=== PATIENT | female | born 1980 | race Caucasian/White ===

== ENCOUNTER 2017-02-26 18:45 | Emergency (ER) | payer SELFPAY ==
[2017-02-26 18:59] VITALS: BP 137/94
--- NOTE | 2017-02-26 19:04 | ER Document Report ---
ED Medical Screen (RME) - General Stated Complaint: CHEST PAIN Time seen by provider: 19:01 Mode of Arrival: Ambulatory Information source: Patient Notes: 36-year-old female presents to ED for left-sided chest tenderness. With difficulty breathing. She states that Thursday her knee gave out for a and she fell landing on the lower left side. Ever since then her left ribs have been very painful and she is unable to take a deep breath. She states she has not been to any kind of provider since the fall. Breath sounds diminished bilaterally but equal. Last menstrual period 02/17/2017 I have greeted and performed a rapid initial assessment of this patient. A comprehensive ED assessment and evaluation of the patient, analysis of test results and completion of medical decision making process will be conducted by an additional ED providers. TRAVEL OUTSIDE OF THE [place] IN LAST 30 DAYS: No - Related Data Allergies/Adverse Reactions: No Known Allergies Allergy (Verified 02/26/17 19:01) Past Medical History - Social History Family history: Other - copd Pulmonary Medical History: Reports: Hx Bronchitis - Immunizations Immunizations up to date: No Hx Diphtheria, Pertussis, Tetanus Vaccination: No Physical Exam - Vital signs Vitals: Temp Pulse BP Pulse Ox 98.2 F 85 137/94 H 100 02/26/17 18:56 02/26/17 18:56 02/26/17 18:56 02/26/17 18:56 Course - Vital Signs Vital signs: Temp Pulse Resp BP Pulse Ox 98.2 F 85 137/94 H 100 02/26/17 18:56 02/26/17 18:56 02/26/17 18:56 02/26/17 18:56
--- NOTE | 2017-02-26 22:37 | ER Document Report ---
ED General - General Chief Complaint: Rib Pain Stated Complaint: CHEST PAIN Mode of Arrival: Ambulatory Information source: Patient Notes: 36-year-old female presents to the emergency department complaining of left lateral thorax/rib pain over the last 4 days s/p mechanical fall. Patient reports tripped and fell 4 days ago landing on her left side/ribs. Reports pain with movement of thorax and deep breathing over the last 4 days. Denies of breath, bruising, chest pain, hemoptysis, nausea or vomiting, neck or back pain. States did not strike head or lose consciousness during the fall. TRAVEL OUTSIDE OF THE [place] IN LAST 30 DAYS: No - HPI Onset/Duration: Persistent Quality of pain: Achy Severity: Moderate Pain Level: 3 Similar symptoms previously: No Recently seen / treated by doctor: No - Related Data Allergies/Adverse Reactions: No Known Allergies Allergy (Verified 02/26/17 19:01) Past Medical History - General Information source: Patient - Social History Smoking Status: Current Every Day Smoker Chew tobacco use (# tins/day): No Frequency of alcohol use: Occasional Drug Abuse: None Lives with: Family Family History: Reviewed & Not Pertinent Patient has suicidal ideation: No Patient has homicidal ideation: No Pulmonary Medical History: Reports: Hx Bronchitis Renal/ Medical History: Denies: Hx Peritoneal Dialysis Surgical Hx: Negative - Immunizations Immunizations up to date: No Hx Diphtheria, Pertussis, Tetanus Vaccination: No Review of Systems - Review of Systems Constitutional: No symptoms reported EENT: No symptoms reported Cardiovascular: No symptoms reported Respiratory: No symptoms reported Gastrointestinal: No symptoms reported Genitourinary: No symptoms reported Female Genitourinary: No symptoms reported Musculoskeletal: See HPI Skin: No symptoms reported Hematologic/Lymphatic: No symptoms reported Neurological/Psychological: No symptoms reported -: Yes All other systems reviewed and negative Physical Exam - Vital signs Vitals: Temp Pulse BP Pulse Ox 98.2 F 85 137/94 H 100 02/26/17 18:56 02/26/17 18:56 02/26/17 18:56 02/26/17 18:56 - General General appearance: Appears well, Alert In distress: None - HEENT Head: Normocephalic, Atraumatic Eyes: Normal Pupils: PERRL - Respiratory Respiratory status: No respiratory distress Chest status: Tender, Pain on movement, Pain with cough, Pain with deep breathing. No: Nontender, Chest mass, Ecchymosis, No pleuritic chest pain, Wounds, Accessory muscle use, Prolonged expirations, Splinting, Other Breath sounds: Normal - CTAB Chest palpation: Tender - tenderness to palpation to left lateral lower thorax/ ribs. No crepitus, instability, bruising, or deformity.. No: Normal, Flail segment, [place] frothy sputum, Purulent sputum, Subcutaneous emphysema, Sucking chest wound, Ecchymosis, Wounds, Other - Cardiovascular Rhythm: Regular Heart sounds: Normal auscultation Murmur: No Pulses: Normal: Radial Normal capillary refill: Yes - Abdominal Inspection: Normal Distension: No distension Bowel sounds: Normal Tenderness: Nontender Organomegaly: No organomegaly - Back Back: Normal, Nontender. No: Tender, Deformity/step-off, CVA tenderness, Vertebra tenderness, Scars, Scoliosis, Wounds, Other - Extremities General upper extremity: Normal inspection, Nontender, Normal color, Normal ROM , Normal strength, Normal temperature. No: Edema General lower extremity: Normal inspection, Nontender, Normal color, Normal ROM , Normal strength, Normal temperature, Normal weight bearing. No: Edema - Neurological Neuro grossly intact: Yes Cognition: Normal Orientation: AAOx4 Emiliano Coma Scale Eye Opening: Spontaneous Emiliano Coma Scale Verbal: Oriented Marlette Coma Scale Motor: Obeys Commands Emiliano Coma Scale Total: 15 Speech: Normal Motor strength normal: LUE, RUE, LLE, RLE Sensory: Normal - Skin Skin Temperature: Warm Skin Moisture: Dry Skin Color: Normal Course - Re-evaluation Re-evalutation: 02/26/17 22:37 Patient hemodynamically stable, in no distress, afebrile. Chest x-ray unremarkable. Will treat for likely chest wall/rib contusion. Patient appears stable for discharge and agrees with home care, follow-up with PCP, ED return precautions. - Vital Signs Vital signs: Temp Pulse Resp BP Pulse Ox 98.2 F 85 137/94 H 100 02/26/17 18:56 02/26/17 18:56 02/26/17 18:56 02/26/17 18:56 - Diagnostic Test Radiology reviewed: Image reviewed, Reports reviewed Discharge - Discharge Clinical Impression: Contusion, chest wall Qualifiers: Encounter type: initial encounter Laterality: left Qualified Code(s): S20.212A - Contusion of left front wall of thorax, initial encounter Contusion of rib on left side Qualifiers: Encounter type: initial encounter Qualified Code(s): S20.212A - Contusion of left front wall of thorax, initial encounter Condition: Stable Disposition: HOME, SELF-CARE Instructions: Rib Contusion ([facility]), Chest Wall Pain ([facility]), Anti-Inflammatory Medication ([facility]) Additional Instructions: Follow-up with primary care provider this week. Return to the emergency department for any worsening symptoms or concerns. Prescriptions: Lidocaine/Menthol [Lidopatch] 1 patch TP DAILY PRN #3 adh..patch PRN Reason: Naproxen 500 mg PO BIDP PRN #10 tablet PRN Reason: Forms: Elevated Blood Pressure
== END 2017-02-26 22:58 | disposition home or self-care (01) ==
LOC: ER 18:45
DX: S20.212A Contusion of left front wall of thorax, initial encounter (principal); R07.81 Pleurodynia; R07.9 Chest pain, unspecified; W19.XXXA Unspecified fall, initial encounter; F17.200 Nicotine dependence, unspecified, uncomplicated
CPT/HCPCS: 99283

== ENCOUNTER 2017-11-18 04:52 | Emergency (ER) | payer SELFPAY ==
--- NOTE | 2017-11-18 05:21 | ER Document Report ---
HPI - HPI Patient complains to provider of: Right wrist injury Pain Level: 3 Context: Patient is a 37-year-old female comes emergency department for chief complaint of right wrist injury. She states that she tripped and landed on her outstretched arm, she denies elbow pain, shoulder pain, neck pain, head injury, she states that when she started having swelling she decided to come and get evaluated. She does not take any medications, LMP within the past month, she denies any medical problems. - REPRODUCTIVE Reproductive: DENIES: : Past Medical History - General Information source: Patient - Social History Smoking Status: Current Some Day Smoker Drug Abuse: None Lives with: Family Family History: Reviewed & Not Pertinent Pulmonary Medical History: Reports: Hx Bronchitis Renal/ Medical History: Denies: Hx Peritoneal Dialysis Surgical Hx: Negative - Immunizations Immunizations up to date: No Hx Diphtheria, Pertussis, Tetanus Vaccination: No Vertical Provider Document - CONSTITUTIONAL General Appearance: WD/WN, No Apparent Distress - INFECTION CONTROL TRAVEL OUTSIDE OF THE [place] IN LAST 30 DAYS: No - HEENT HEENT: Atraumatic, Normocephalic - NECK Neck: Normal Inspection - RESPIRATORY Respiratory: Breath Sounds Normal, No Respiratory Distress O2 Sat by Pulse Oximetry: 100 - CARDIOVASCULAR Cardiovascular: Regular Rate, Regular Rhythm - GI/ABDOMEN Gastrointestinal: Abdomen Soft, Abdomen Non-Tender - BACK Back: Normal Inspection - MUSCULOSKELETAL/EXTREMETIES Musculoskeletal/Extremeties: Tender - Tender over the right distal forearm/wrist , no snuffbox tenderness, pain with range of motion of the wrist, soft tissue swelling over the volar aspect of the wrist. Normal capillary refill and sensation. Normal forearm, arm, neck exam otherwise. Course - Re-evaluation Re-evalutation: 11/18/17 Radiology report taking a very long time. Called radiology, they are pushing images again. Discussed with patient what appears to me to be a fracture at the end of the ulna, questionable fracture of the radius, no displaced fractures. No snuffbox tenderness on exam. Normal distal neurovascular exam. Patient will be placed in a volar splint, discussed this with patient in detail , she is to follow-up with orthopedics for casting. 11/18/17 07:15 Nurse informs me that patient left, refused splint, did state she was going to follow-up with orthopedics. I called the phone number that was left for us, I spoke to the , patient is not home yet, discussed all details, advised that she come back to have the splint placed pending orthopedic follow-up. He states that he will speak to her. - Vital Signs Vital signs: Temp Pulse Resp BP Pulse Ox 98.4 F 94 18 123/89 H 100 11/18/17 04:53 11/18/17 04:53 11/18/17 04:53 11/18/17 04:53 11/18/17 04:53 - Diagnostic Test Radiology reviewed: Image reviewed Discharge - Discharge Clinical Impression: Wrist injury Qualifiers: Encounter type: initial encounter Laterality: right Qualified Code(s): S69.91XA - Unspecified injury of right wrist, hand and finger(s), initial encounter Condition: Stable Disposition: HOME, SELF-CARE Additional Instructions: Evidence for fracture at the end of your forearm in the bone called the ulna. There is a questionable fracture in the radius beside this. Wear the splint. Call the orthopedics referral today for a close follow-up and additional management. Return to the emergency department for any concerning or worsening symptoms including severe swelling or pain. Referrals: ELVIN OCASIO MD [ACTIVE STAFF] - Follow up tomorrow
--- NOTE | 2017-11-18 07:06 | RADIOLOGY REPORT (SQ) ---
EXAM DESCRIPTION: WRIST RIGHT 3 VIEWS CLINICAL HISTORY: 37 years, Female, fall on wrist, pain, swelling COMPARISON: None. NUMBER OF VIEWS: Four FINDINGS: Nondisplaced curvilinear fracture/defect of the ulnar styloid base with no evidence of healing. Minimal cortical irregularity of the distal radial diametaphysis may indicate a nondisplaced intra-articular fracture with overlying soft tissue swelling. Scaphoid appears intact. IMPRESSION: Nondisplaced fracture of the right ulnar styloid. Possible nondisplaced fracture of the right radial styloid. Consider CT/CR surveillance. 2011 [employer] [place]- All Rights Reserved
[2017-11-18 07:07] VITALS: BP 110/78
== END 2017-11-18 07:07 | disposition home or self-care (01) ==
LOC: ER 04:52
DX: S69.91XA Unspecified injury of right wrist, hand and finger(s), initial encounter (principal); W19.XXXA Unspecified fall, initial encounter; F17.200 Nicotine dependence, unspecified, uncomplicated
CPT/HCPCS: 99283

== ENCOUNTER 2018-07-19 01:54 | Emergency (ER) | payer SELFPAY ==
[2018-07-19] MEDS ORDERED: DEXAMETHASONE SOD PHOS INJ 10 MG/1 ML VIAL IM ONE (02:44)
--- NOTE | 2018-07-19 02:47 | ER Document Report ---
ED General - General Chief Complaint: Congestion Stated Complaint: CONGESTION,DIARRHEA Time Seen by Provider: 07/19/18 02:31 Notes: Patient is a 29-year-old female presents with complaint of nasal congestion. Some coughing. Some postnasal drip. Some sore throat. She says she also started to develop some diarrhea. Symptoms have been ongoing for 5 days. She says her stools are not watery but they are loose. No blood in her stool. Low- grade temp of 100.5 at home. No associated abdominal pain. She is a smoker. TRAVEL OUTSIDE OF THE [place] IN LAST 30 DAYS: No - Related Data Allergies/Adverse Reactions: No Known Allergies Allergy (Verified 02/26/17 19:01) Past Medical History - Social History Smoking Status: Unknown if Ever Smoked Frequency of alcohol use: None Drug Abuse: None Family History: Reviewed & Not Pertinent Patient has suicidal ideation: No Patient has homicidal ideation: No Pulmonary Medical History: Reports: Hx Bronchitis Renal/ Medical History: Denies: Hx Peritoneal Dialysis - Immunizations Immunizations up to date: No Hx Diphtheria, Pertussis, Tetanus Vaccination: No Review of Systems - Review of Systems Notes: My Normal Review Basic REVIEW OF SYSTEMS: CONSTITUTIONAL : Fever EENT: Nasal congestion. CARDIOVASCULAR: Denies chest pain. RESPIRATORY: Denies cough, cold, or chest congestion. Denies shortness of breath, difficulty breathing, or wheezing. GASTROINTESTINAL: Denies abdominal pain. Denies nausea, vomiting, or diarrhea. MUSCULOSKELETAL: Denies neck or back pain or joint pain or swelling. SKIN: Denies rash or skin lesions. NEUROLOGICAL: Denies altered mental status or loss of consciousness. Denies headache. Denies weakness or paralysis or loss of use of either side. Denies problems with gait or speech. Denies sensory or motor loss. ALL OTHER SYSTEMS REVIEWED AND NEGATIVE. Physical Exam - Vital signs Vitals: Temp Pulse BP Pulse Ox 98.7 F 91 147/95 H 100 07/19/18 01:59 07/19/18 01:59 07/19/18 01:59 07/19/18 01:59 - Notes Notes: General Appearance: Well nourished, alert, cooperative, no acute distress, no obvious discomfort. Well appearing. Normal nasal congestion on exam. Dry cough on exam. Vitals: reviewed, See vital signs table. Head: no swelling or tenderness to the head Eyes: PERRL, EOMI, Conjuctiva clear Mouth: No decreasd moisture Throat: No tonsillar inflammation, No airway obstruction, No lymphadenopathy Ears: Normal-appearing tympanic membranes bilaterally. Lungs: No wheezing, No rales, No rhonci, No accessory muscle use, good air exchange bilaterally. Heart: Normal rate, Regular rythm, No murmur, no rub Abdomen: Normal BS, soft, No rigidity, No abdominal tenderness, No guarding, no rebound, no abdominal masses, no organomegaly Extremities: good pulses in all extremities, no swelling or tenderness in the extremities, no edema. Skin: warm, dry, appropriate color, no rash Neuro: speech clear, oriented x 3, normal affect, responds appropriately to questions. Course - Re-evaluation Re-evalutation: 07/19/18 06:41 Patient has symptoms consistent with a upper respiratory infection. I do not suspect bacterial etiology. I encourage her to quit smoking as I informed her continued smoking with cause this to last longer and causing more sinus symptoms. I encourage her take [id number] anti-inflammatory decongestant such as Advil Cold and Sinus. Encouraged to take his medications with food. Encouraged her return to ER if she has any wheezing, difficulty breathing, recurrent fevers, or feels unwell. On exam patient's lung benson are clear she is in no distress and appears well and therefore feel she is safe to be discharged home. Dictation of this chart was performed using voice recognition software; therefore, there may be some unintended grammatical errors. - Vital Signs Vital signs: Temp Pulse Resp BP Pulse Ox 98.3 F 84 16 133/84 H 100 07/19/18 03:25 07/19/18 03:25 07/19/18 03:25 07/19/18 03:25 07/19/18 03:25 Discharge - Discharge Clinical Impression: URI (upper respiratory infection) Qualifiers: URI type: unspecified URI Qualified Code(s): J06.9 - Acute upper respiratory infection, unspecified Condition: Good Disposition: HOME, SELF-CARE Additional Instructions: Please return to the ER immediately if you develop fevers, vomiting, or difficulty breathing. Please take a anti-inflammatory with a decongestant such as "Advil Cold and Sinus". Take these medications with food. Please try to stop smoking.
[2018-07-19 03:25] VITALS: BP 133/84
== END 2018-07-19 04:45 | disposition home or self-care (01) ==
LOC: ER 01:54
DX: J06.9 Acute upper respiratory infection, unspecified (principal); R09.81 Nasal congestion; R05 Cough; R09.82 Postnasal drip; J02.9 Acute pharyngitis, unspecified; R19.7 Diarrhea, unspecified; F17.200 Nicotine dependence, unspecified, uncomplicated
CPT/HCPCS: 99283; 96372; J1100

== ENCOUNTER 2019-01-01 09:00 | Emergency (ER) | payer SELFPAY ==
[2019-01-01] MEDS ORDERED: PSEUDOEPHEDRINE HCL 30 MG TABLET PO ONE (09:48)
[2019-01-01] MEDS ORDERED: IPRATROPIUM/ALBUTEROL 0.5-2.5 MG/3 ML AMPUL NEB ONE (09:48)
[2019-01-01] MEDS ORDERED: IBUPROFEN 600 MG TABLET PO ONE (09:48)
[2019-01-01 10:08] LABS: ABSOLUTE EOSINOPHILS # (AUTO) 0.1 10^3/uL (0.0-0.6); ABSOLUTE LYMPHOCYTES (AUTO) 1.8 10^3/uL (0.5-4.7); ABSOLUTE MONOCYTES (AUTO) 0.9 10^3/uL (0.1-1.4); ABSOLUTE NEUT (AUTO) 4.9 10^3/uL (1.7-8.2); BASOPHILS % (AUTO) 0.5 % (0-2); EOSINOPHILS % (AUTO) 1.7 % (0-6); HEMATOCRIT 38.2 % (36.0-47.0); HEMOGLOBIN 13.2 g/dL (12.0-15.5); LYMPHOCYTES % (AUTO) 23.3 % (13-45); MEAN CORPUSCULAR HEMOGLOBIN 34.2 pg (27.0-33.4); MEAN CORPUSCULAR HGB CONC 34.5 g/dL (32.0-36.0); MEAN CORPUSCULAR VOLUME 99 fl (80-97); MONOCYTES % (AUTO) 11.4 % (3-13); PLATELET COUNT 215 10^3/uL (150-450); RED BLOOD COUNT 3.86 10^6/uL (3.72-5.28); RED CELL DISTRIBUTION WIDTH 13.4 % (11.5-14.0); SEGMENTED NEUTROPHILS % (AUTO) 63.1 % (42-78); TOTAL CELLS COUNTED % (AUTO) 100 %; WHITE BLOOD COUNT 7.8 10^3/uL (4.0-10.5)
--- NOTE | 2019-01-01 10:25 | ER Document Report ---
HPI - HPI Patient complains to provider of: Cold symptoms, shortness of breath Time Seen by Provider: 01/01/19 09:28 Onset: Other - 5 days Onset/Duration: Persistent Quality of pain: No pain Pain Level: 0 Context: Patient presents complaining of cold symptoms for the past 5 days with shortness of breath. Patient does complain of cough and congestion. Patient denies any fever. Patient does report recent sick contacts. Patient denies any history of travel, immobilization, bedrest or history of PE or DVT. Associated Symptoms: Nonproductive cough, Rhinnorhea, Shortness of breath. denies: Chest pain, Fever, Sore throat Exacerbated by: Walking Relieved by: Denies Similar symptoms previously: No Recently seen / treated by doctor: No - ROS ROS below otherwise negative: Yes Systems Reviewed and Negative: Yes All other systems reviewed and negative - CONSTITUTIONAL Constitutional: DENIES: Fever, Chills - EENT EENT: REPORTS: Nasal Drainage-Clear, Congestion - NEURO Neurology: REPORTS: Headache - CARDIOVASCULAR Cardiovascular: DENIES: Chest pain - RESPIRATORY Respiratory: REPORTS: Coughing - GASTROINTESTINAL Gastrointestinal: DENIES: Abdominal Pain, Nausea, Patient vomiting - REPRODUCTIVE Reproductive: DENIES: : - MUSCULOSKELETAL Musculoskeletal: DENIES: Back Pain - DERM Skin Color: Normal Skin Problems: None Past Medical History - General Information source: Patient - Social History Smoking Status: Current Every Day Smoker Chew tobacco use (# tins/day): No Frequency of alcohol use: None Drug Abuse: None 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 IN LAST 30 DAYS: No - HEENT HEENT: Atraumatic, Normocephalic. negative: Pharyngeal Exudate, Pharyngeal Tenderness, Pharyngeal Erythema, Tympanic Membrane Red, Tympanic Membrane Bulging Notes: Clear rhinorrhea, swollen nasal mucosa - NECK Neck: Normal Inspection, Supple. negative: Lymphadenopathy-Left, Lymphadenopathy-Right - RESPIRATORY Respiratory: Breath Sounds Normal, No Respiratory Distress, Chest Non-Tender - CARDIOVASCULAR Cardiovascular: Regular Rhythm, No Murmur, Tachycardia - GI/ABDOMEN Gastrointestinal: Abdomen Soft, Abdomen Non-Tender - BACK Back: Normal Inspection - MUSCULOSKELETAL/EXTREMETIES Musculoskeletal/Extremeties: MAEW, FROM, No Edema - NEURO Level of Consciousness: Awake, Alert, Appropriate Motor/Sensory: No Motor Deficit - DERM Integumentary: Warm, Dry, No Rash Course - Re-evaluation Re-evalutation: 01/01/19 11:16 Patient's tachycardia improved. Patient denies having any chest pain symptoms. Patient's respirations even unlabored, no objective dyspnea. No concern for PE. Patient nontoxic in appearance. Discussed plan of care. Patient is agreeable with symptomatic treatment at this time. - Vital Signs Vital signs: Temp Pulse Resp BP Pulse Ox 98.2 F 111 H 18 128/82 H 100 01/01/19 09:04 01/01/19 09:04 01/01/19 09:04 01/01/19 09:04 01/01/19 09:04 - Laboratory Result Diagrams: 01/01/19 09:55 01/01/19 09:55 Laboratory results interpreted by me: 01/01/19 09:55 MCV 99 H MCH 34.2 H 01/01/19 11:25 Labs- Entire Visit 01/01/19 01/01/19 01/01/19 09:55 09:55 09:55 WBC 7.8 RBC 3.86 Hgb 13.2 Hct 38.2 MCV 99 H MCH 34.2 H MCHC 34.5 RDW 13.4 Plt Count 215 Seg Neutrophils % 63.1 Lymphocytes % 23.3 Monocytes % 11.4 Eosinophils % 1.7 Basophils % 0.5 Absolute Neutrophils 4.9 Absolute Lymphocytes 1.8 Absolute Monocytes 0.9 Absolute Eosinophils 0.1 Absolute Basophils 0.0 D-Dimer 0.27 Sodium 141.3 Potassium 4.1 Chloride 105 Carbon Dioxide 29 Anion Gap 7 BUN 11 Creatinine 0.51 L Est GFR ( Amer) > 60 Est GFR (Non-Af Amer) > 60 Glucose 100 Calcium 9.1 Total Bilirubin 0.2 Direct Bilirubin 0.1 Neonat Total Bilirubin Not Reportable Neonat Direct Bilirubin Not Reportable Neonat Indirect Bili Not Reportable AST 15 ALT 21 Alkaline Phosphatase 74 Troponin I Total Protein 6.6 Albumin 3.9 01/01/19 09:55 WBC RBC Hgb Hct MCV MCH MCHC RDW Plt Count Seg Neutrophils % Lymphocytes % Monocytes % Eosinophils % Basophils % Absolute Neutrophils Absolute Lymphocytes Absolute Monocytes Absolute Eosinophils Absolute Basophils D-Dimer Sodium Potassium Chloride Carbon Dioxide Anion Gap BUN Creatinine Est GFR ( Amer) Est GFR (Non-Af Amer) Glucose Calcium Total Bilirubin Direct Bilirubin Neonat Total Bilirubin Neonat Direct Bilirubin Neonat Indirect Bili AST ALT Alkaline Phosphatase Troponin I < 0.012 Total Protein Albumin - Diagnostic Test Radiology reviewed: Reports reviewed - EKG Interpretation by Me EKG shows normal: Sinus rhythm Rate: Normal When compared to previous EKG there are: No significant change Additional EKG results interpreted by me: 01/01/19 11:25 Heart rate 81, no ST elevation or inversion. QTC 423 Discharge - Discharge Clinical Impression: Upper respiratory infection Qualifiers: URI type: unspecified URI Qualified Code(s): J06.9 - Acute upper respiratory infection, unspecified Dyspnea Qualifiers: Dyspnea type: unspecified Qualified Code(s): R06.00 - Dyspnea, unspecified Condition: Stable Disposition: HOME, SELF-CARE Instructions: Acetaminophen, Inhaled Bronchodilators ([facility]), Upper Respiratory Illness ([facility]) Additional Instructions: Return immediately for any new or worsening symptoms Followup with your primary care provider, call tomorrow to make a followup appointment Prescriptions: Albuterol Sulfate [Proair Hfa Inhalation Aerosol 8.5 gm Mdi] 2 puff IH Q4 PRN #1 mdi PRN Reason: Guaifenesin/Pseudoephedrne HCl [Mucinex D ER 1,200-120 mg Tab] 1 each PO Q12 PRN #12 tab.er.12h PRN Reason: Inhaler,Assist Device,Accesory [Optichamber] 1 each MC Q4 PRN #1 each PRN Reason: Naproxen [Naprosyn 250 Nmg Tablet] 1 tab PO BID #14 tablet Forms: Smoking Cessation Education, Return to Work Referrals: [facility] [Provider Group] - Follow up as needed [facility] [Provider Group] - Follow up as needed
[2019-01-01 10:28] LABS: ALANINE AMINOTRANSFERASE 21 U/L (9-52); ALBUMIN 3.9 g/dL (3.5-5.0); ALKALINE PHOSPHATASE 74 U/L (38-126); ANION GAP 7 (5-19); ASPARTATE AMINO TRANSFERASE 15 U/L (14-36); BILIRUBIN,DIRECT 0.1 mg/dL (0.0-0.4); BILIRUBIN,TOTAL 0.2 mg/dL (0.2-1.3); BLOOD UREA NITROGEN 11 mg/dL (7-20); CALCIUM 9.1 mg/dL (8.4-10.2); CARBON DIOXIDE 29 mmol/L (22-30); CHLORIDE 105 mmol/L (98-107); GLUCOSE 100 mg/dL (75-110); POTASSIUM 4.1 mmol/L (3.6-5.0); SODIUM 141.3 mmol/L (137-145); TOTAL PROTEIN 6.6 g/dL (6.3-8.2)
--- NOTE | 2019-01-01 11:02 | RADIOLOGY REPORT (SQ) ---
EXAM DESCRIPTION: CHEST 2 VIEWS COMPLETED DATE/TIME: 01/01/2019 10:54 am REASON FOR STUDY: sob COMPARISON: 09/17/2015 EXAM PARAMETERS: NUMBER OF VIEWS: two views TECHNIQUE: Digital Frontal and Lateral radiographic views of the chest acquired. RADIATION DOSE: NA LIMITATIONS: none FINDINGS: LUNGS AND PLEURA: No opacities, masses or pneumothorax. No pleural effusion. MEDIASTINUM AND HILAR STRUCTURES: No masses or contour abnormalities. HEART AND VASCULAR STRUCTURES: Heart normal size. No evidence for failure. BONES: No acute findings. HARDWARE: None in the chest. OTHER: No other significant finding. IMPRESSION: NO ACUTE RADIOGRAPHIC FINDING IN THE CHEST. TECHNICAL DOCUMENTATION: JOB ID: [id number] [email or web address]- All Rights Reserved Reading location - IP/workstation name: [email or web address]
[2019-01-01 11:52] VITALS: BP 118/94
--- NOTE | 2019-01-01 17:15 | EKG REPORT ---
SEVERITY:- BORDERLINE ECG - SINUS RHYTHM PROBABLE LEFT ATRIAL ABNORMALITY : Confirmed by: Margarito Walters MD 01-Jan-2019 17:14:20
== END 2019-01-01 11:40 | disposition home or self-care (01) ==
LOC: ER 09:00
DX: J06.9 Acute upper respiratory infection, unspecified (principal); R06.02 Shortness of breath; R05 Cough; J34.89 Other specified disorders of nose and nasal sinuses; R51 Headache; F17.200 Nicotine dependence, unspecified, uncomplicated
CPT/HCPCS: 93005; 94640; 99284; 36415; 85025; 80053; 84484; 85379; 71046; 93010; J7620

== ENCOUNTER 2019-01-17 20:33 | Emergency (ER) | payer SELFPAY ==
[2019-01-17] MEDS ORDERED: PENICILLIN G BENZATHINE 1.2 MILLION UNIT/2 ML DISP.SYRIN IM ONE (22:03)
--- NOTE | 2019-01-17 22:05 | ER Document Report ---
HPI - HPI Time Seen by Provider: 01/17/19 21:13 Pain Level: 4 Context: Patient is a 38-year-old female who presents emergency department with a chief complaint of of a sore throat. Her sore throat started this morning. She has not taken anything to help with her symptoms. She is still able to drink and eat, it is just irritating. She denies any cough, runny nose, ear pain, shortness of breath, or any other symptoms other than her sore throat. She denies any past medical history. - CONSTITUTIONAL Constitutional: DENIES: Fever, Chills - EENT EENT: REPORTS: Sore Throat. DENIES: Ear Pain, Nasal Drainage-Clear, Nasal Drainage-Purulent, Congestion - NEURO Neurology: DENIES: Headache - CARDIOVASCULAR Cardiovascular: DENIES: Chest pain - RESPIRATORY Respiratory: DENIES: Trouble Breathing, Coughing - GASTROINTESTINAL Gastrointestinal: DENIES: Abdominal Pain - REPRODUCTIVE Reproductive: DENIES: : - DERM Skin Color: Normal Skin Problems: None Past Medical History - Social History Smoking Status: Current Every Day Smoker Family History: Reviewed & Not Pertinent Pulmonary Medical History: Reports: Hx Bronchitis Renal/ Medical History: Denies: Hx Peritoneal Dialysis - Immunizations Immunizations up to date: No Hx Diphtheria, Pertussis, Tetanus Vaccination: No Vertical Provider Document - CONSTITUTIONAL Agree With Documented VS: Yes Exam Limitations: No Limitations General Appearance: No Apparent Distress - INFECTION CONTROL TRAVEL OUTSIDE OF THE [place] IN LAST 30 DAYS: No - HEENT HEENT: Atraumatic, Normocephalic, PERRLA, Pharyngeal Tenderness, Pharyngeal Erythema. negative: Dental Injury, Pharyngeal Exudate, Tympanic Membrane Red, Tympanic Membrane Bulging - NECK Neck: Lymphadenopathy-Left, Lymphadenopathy-Right - RESPIRATORY Respiratory: Breath Sounds Normal - CARDIOVASCULAR Cardiovascular: Regular Rate, Regular Rhythm Pulses: Normal: Radial - MUSCULOSKELETAL/EXTREMETIES Musculoskeletal/Extremeties: FROM - NEURO Level of Consciousness: Awake, Alert, Appropriate Motor/Sensory: No Motor Deficit - DERM Integumentary: Warm, Dry Course - Re-evaluation Re-evalutation: 01/17/19 22:06 Patient's rapid strep test is positive. She will be given penicillin G to treat her strep throat. She will also be sent home with supportive care of Motrin and Tylenol. I have a very low suspicion for a peritonsilar abcess because their uvula is midline. Airway is patent. I do not suspect Magdy's angina. Verbal discharge instructions were given to the patient. They verbalized understanding. They are stable for discharge. - Vital Signs Vital signs: Temp Pulse Resp BP Pulse Ox 100.3 F 102 H 18 129/88 H 99 01/17/19 20:56 01/17/19 20:56 01/17/19 20:56 01/17/19 20:56 01/17/19 20:56 Discharge - Discharge Clinical Impression: Sore throat, Strep pharyngitis Condition: Stable Disposition: HOME, SELF-CARE Instructions: Sore Throat ([facility]) Additional Instructions: You have been diagnosed with strep throat based on a positive strep test. You have been treated with a dose of penicillin here in the emergency department and do not need any additional antibiotics. Please take ibuprofen 600 mg every 6 hours or Tylenol 1000 mg every 6 hours as needed for throat discomfort. You can also gargle with salt water. Continue to drink plenty of fluids. Follow-up with your primary care doctor in the next several days. Return if you become unable to swallow, have difficulty breathing, pass out, have persistent vomiting that prevents you from being able to tolerate fluids, or have any other symptoms that are concerning to you. Forms: Return to Work
[2019-01-17 22:36] VITALS: BP 135/95
== END 2019-01-17 22:50 | disposition home or self-care (01) ==
LOC: ER 20:33
DX: J02.0 Streptococcal pharyngitis (principal); F17.200 Nicotine dependence, unspecified, uncomplicated
CPT/HCPCS: 99283; 96372; 87880; J0561

== ENCOUNTER 2019-08-06 14:03 | Emergency (ER) | payer SELFPAY ==
--- NOTE | 2019-08-06 16:50 | ER Document Report ---
ED Medical Screen (RME) - General Chief Complaint: Back Pain Stated Complaint: BACK PAIN Time Seen by Provider: 08/06/19 16:48 Mode of Arrival: Ambulatory Information source: Patient Notes: 38-year-old female presented to ED for complaint of back pain. She states 2 dogs pulled on 2 different directions about a month and a half ago she has had pain since then. She is no new falls. She states she had pain down her neck and down her back down her legs. Patient was alert and oriented respirations regular and unlabored speaking in full sentences. I have greeted and performed a rapid initial assessment of this patient. A comprehensive ED assessment and evaluation of the patient, analysis of test results and completion of medical decision making process will be conducted by an additional ED providers. TRAVEL OUTSIDE OF THE [place] IN LAST 30 DAYS: No - Related Data Allergies/Adverse Reactions: No Known Allergies Allergy (Verified 07/01/19 15:34) Past Medical History - Social History Family history: Other - copd Pulmonary Medical History: Reports: Hx Bronchitis Renal/ Medical History: Denies: Hx Peritoneal Dialysis - Immunizations Immunizations up to date: No Hx Diphtheria, Pertussis, Tetanus Vaccination: No Physical Exam - Vital signs Vitals: Temp Pulse Resp BP Pulse Ox 98.2 F 115 H 18 115/85 95 08/06/19 14:19 08/06/19 14:19 08/06/19 14:19 08/06/19 14:19 08/06/19 14:19 Course - Vital Signs Vital signs: Temp Pulse Resp BP Pulse Ox 97.6 F 74 14 118/82 98 08/06/19 21:38 08/06/19 21:38 08/06/19 21:38 08/06/19 21:38 08/06/19 21:38 Doctor's Discharge - Discharge Clinical Impression: Low back pain due to bilateral sciatica, Fall Condition: Good Disposition: HOME, SELF-CARE Instructions: Sciatica ([facility]), Warm Packs ([facility]) Additional Instructions: Follow-up with PCP/neurosurgery in 1 to 2 days. Return for any worsening symptoms. Do not work, drive, take Tylenol, or operate machinery while taking the pain medication or muscle relaxers. Ice/heat to your back. You can get an [id number] TENS unit and put on the area. take the medication as prescribed. Prescriptions: Hydrocodone/Acetaminophen [[place] 5-325 mg Tablet] 1 tab PO Q6 PRN #12 tablet PRN Reason: For Pain Methocarbamol [Robaxin 500 mg Tablet] 1,000 mg PO QID PRN #40 tablet PRN Reason: For Pain Forms: Return to Work
[2019-08-06] MEDS ORDERED: IBUPROFEN 600 MG TABLET PO ONE (16:54)
--- NOTE | 2019-08-06 16:54 | ER Document Report ---
ED Medical Screen (RME) - General Chief Complaint: Back Pain Stated Complaint: BACK PAIN Time Seen by Provider: 08/06/19 16:48 Mode of Arrival: Ambulatory Information source: Patient Notes: 88-year-old female presented to ED for worsening pain to her back. She does have a history of chronic back pain she also has a history of 2 dogs pulling her in different directions about a month and a half ago. She states she now has pain down her neck down her back down her legs. When she was seen here a month and a half ago she had similar pain. He did treat her with ibuprofen muscle relaxer and told to follow-up with PCP. She states she did not have the time of the money to go to the primary or to the orthopedics. Patient is alert and oriented respirations regular and unlabored speaking in full sentences. Patient denies any drinking or use of illicit drugs. She states she does smoke a half a pack a day. Patient states when she got up last night to go to the bathroom her legs gave out from under her. She did walk into the room today. Patient denies any loss of control of bowel bladder. I have greeted and performed a rapid initial assessment of this patient. A comprehensive ED assessment and evaluation of the patient, analysis of test results and completion of medical decision making process will be conducted by an additional ED providers. TRAVEL OUTSIDE OF THE [place] IN LAST 30 DAYS: No - Related Data Allergies/Adverse Reactions: No Known Allergies Allergy (Verified 07/01/19 15:34) Past Medical History - Social History Family history: Other - copd Pulmonary Medical History: Reports: Hx Bronchitis Renal/ Medical History: Denies: Hx Peritoneal Dialysis - Immunizations Immunizations up to date: No Hx Diphtheria, Pertussis, Tetanus Vaccination: No Physical Exam - Vital signs Vitals: Temp Pulse Resp BP Pulse Ox 98.2 F 115 H 18 115/85 95 08/06/19 14:19 08/06/19 14:19 08/06/19 14:08/06/19 14:19 08/06/19 14:19 Course - Vital Signs Vital signs: Temp Pulse Resp BP Pulse Ox 98.2 F 115 H 18 115/85 95 08/06/19 14:19 08/06/19 14:19 08/06/19 14:19 08/06/19 14:08/06/19 14:19
--- NOTE | 2019-08-06 17:47 | RADIOLOGY REPORT (SQ) ---
EXAM DESCRIPTION: L SPINE WHOLE COMPLETED DATE/TIME: 08/06/2019 5:30 pm REASON FOR STUDY: low back pain with sciatica COMPARISON: None. NUMBER OF VIEWS: Five views including obliques. TECHNIQUE: AP, lateral, oblique, and sacral radiographic images acquired of the lumbar spine. LIMITATIONS: None. FINDINGS: MINERALIZATION: Normal. SEGMENTATION: Normal. No transitional anatomy. ALIGNMENT: Normal. VERTEBRAE: Maintained height. No compression fracture. DISCS: Preserved height. No significant osteophytes or end plate irregularity. POSTERIOR ELEMENTS: Pedicles and facets are intact. No pars defect. HARDWARE: None in the spine. PARASPINAL SOFT TISSUES: Normal. PELVIS: SI joints intact. IMPRESSION: No acute radiographic finding at the lumbar spine. TECHNICAL DOCUMENTATION: JOB ID: [id number] 2010 [employer]- All Rights Reserved Reading location - IP/workstation name: [email or web address]
--- NOTE | 2019-08-06 18:48 | ER Document Report ---
HPI - HPI Patient complains to provider of: low back pain with bilat sciatica Time Seen by Provider: 08/06/19 16:48 Severity: Moderate Pain Level: 4 Context: This is a 38 yr old female pt with the listed pmh, presenting with an acute exacerbation of their lower back pain. Patient states that this has been ongoing for the last several weeks intermittently, worse since last night after she had an accidental mechanical fall onto her buttocks. Patient states that the pain is a sharp achy 8 out of 10 pain with radiation down both legs. Patient states that movement and palpation make the pain worse and rest makes the pain better. Patient denies any numbness, tingling, change of bowel or bladder habits or signs or symptoms of saddle anesthesia. Patient states that secondary to the pain, they have come to the emergency department. No spinal surgeries. No other falls or trauma. no IV drug use. otc meds not helping much. no hx of diabetes or asthma. no recent abx or steroids. no fevers, uti sx, or genitalia complaints. pt able to walk. pt hasn't sought care until now. denies . Patient denies all other complaints at this time. Exacerbated by: Movement Relieved by: Remaining still Similar symptoms previously: Yes Recently seen / treated by doctor: No - ROS Systems Reviewed and Negative: Yes All other systems reviewed and negative - To include 10 systems, unless mentioned in the hpi. - REPRODUCTIVE LMP: 2 weeks ago Reproductive: DENIES: : Past Medical History - General Information source: Patient - Social History Smoking Status: Current Every Day Smoker Frequency of alcohol use: None Drug Abuse: None Family History: Reviewed & Not Pertinent Patient has suicidal ideation: No Patient has homicidal ideation: No Pulmonary Medical History: Reports: Hx Bronchitis Endocrine Medical History: Reports: None Renal/ Medical History: Denies: Hx Kidney Stones, Hx Peritoneal Dialysis Past Surgical History: Denies: Hx Genitourinary Surgery, Hx Neurologic Surgery, Hx Orthopedic Surgery - Immunizations Immunizations up to date: No Hx Diphtheria, Pertussis, Tetanus Vaccination: No Vertical Provider Document - CONSTITUTIONAL Agree With Documented VS: Yes Exam Limitations: No Limitations Notes: Vital signs: All vital signs were reviewed per nursing notes. Gen. Appearance: Nontoxic, patient of stated age, sitting comfortably in the bed. pleasant, thin middle-aged white female who appears slightly older than stated age, speaking in full sentences, in no sign of resp distress, patient appears uncomfortable with movement however not toxic. Psychiatric: Alert and oriented x3, pleasant and very conversational, normal affect. Skin: Warm, pink, dry, normal turgor, no rashes. no grossly visible overlying skin changes or signs of trauma. HEENT: Normocephalic, atraumatic, no mathews signs. no raccoon eyes, pupils are equal and reactive to light, extraocular muscles intact, mucosal membranes moist, pink conjunctiva, no pharyngeal erythema no tonsillar exudate. no drooling, tripoding, voice change or stridor, uvula midline. tongue protrudes midline Neck: Supple, no tenderness, no lymphadenopathy. full rom and full strength. no meningeal signs. no signs of central cord syndrome CV: Regular rate and rhythm, Lungs: Clear to auscultation bilaterally, no wheezes, symmetrical chest rise. no chest wall ttp Abdomen: Soft, nontender, nondistended, good bowel sounds, no rebound, rigidity, guarding or peritoneal signs. No CVA tenderness bilaterally. This is a nonacute abdomen. No tenderness over McBurney's point. no grossly visible or palpable abdominal hernias Genitalia: pt deferred Rectal: deferred; however, no sign of loss of bowel or bladder, no soiling of clothing Back: There is increased tissue tension over the paralumbar musculature on the bilat sides. Palpation to this region did reproduce patient's pain exactly. There is no tenderness to palpation along the midline of the cervical, thoracic or lumbar spine. There are no step-offs or deformities noted. no overlying skin changes. Extremities: Distal pulses two out of four, good capillary refill, no edema, cyanosis or clubbing. full rom and full strength in all extremities with pain on bilateral hip flexion and extension. no swelling or ttp of the extremities. Slight antalgic gait secondary to pain only. good hand administrative manager. neg yash sign. neg farmer squeeze. no drop foot. no shortening or rotation of the limbs. no obvious deformities. Neuro: Cranial nerves II through XII intact, normal speech, cerebellar function intact. Symmetric smile and faces. reflexes wnl. motor and sensation intact to light touch. - INFECTION CONTROL TRAVEL OUTSIDE OF THE [place] IN LAST 30 DAYS: No Course - Re-evaluation Re-evalutation: 08/06/19 21:10 This patient presents with an acute exacerbation of their lower back pain. There are no signs or symptoms of saddle anesthesia or change in bowel or bladder habits. There are no current findings on examination indicative of spinal cord involvement. no uti sx. pain likely musculoskeletal and reproducible one exam. her triage lumbar xr was neg per rad and reviewed by myself. pt informed of her findings. she responded well to meds listed. will dc with a few vicodin and robaxin. gave medication precautions. advised sx care. Patient will followup with PCP/neurosurg within 2-4 days. Patient will return immediately to the emergency department with any worsening symptoms. Patient understands and was in agreement with treatment plan. Vss. Afebrile. Well appearing. Satting well on ra. Neurononfocal. no sign of cauda equina, central cord syndrome or spinal cord involvement. According to the [place] drug website, she has not received any narcotics in the last 6 months. On reexam, pt improved with tx listed. remained stable. nontoxic. well appearing. pain controlled. tolerating po. requesting to go home. Documentation achieved through voice recording which may lead to some occasional accidental typographical errors. Extensive efforts have been made to proof read documentation to make sure these are the least as possible. Category Date Time Status Lumbar spine complete [L SPINE WHOLE] [RAD] Stat Exams 08/06/19 16:55 Completed Dexamethasone Sod Phosphate [Decadron Inj 10 mg/1 ml Med 08/06/19 21:00 Once Vial] 10 mg INJ NOW ONE Hydrocodone/Acetaminophen [[place] 5-325 mg Tablet] Med 08/06/19 20:59 Once 2 tab PO NOW ONE Ibuprofen [Motrin 600 mg Tablet] Med 08/06/19 16:54 Discontinued 600 mg PO NOW ONE Methocarbamol [Robaxin 500 mg Tablet] Med 08/06/19 21:00 Once 1,000 mg PO NOW ONE 08/06/19 21:25 Temp Pulse Resp BP Pulse Ox 08/06/19 20:08 98.1 F 77 16 125/88 H 100 08/06/19 14: 98.2 F 115 H 18 115/85 95 - Vital Signs Vital signs: Temp Pulse Resp BP Pulse Ox 98.2 F 115 H 18 115/85 95 08/06/19 14:19 08/06/19 14:19 08/06/19 14:19 08/06/19 14:19 08/06/19 14:19 Discharge - Discharge Clinical Impression: Low back pain due to bilateral sciatica Fall Qualifiers: Encounter type: initial encounter Qualified Code(s): W19.XXXA - Unspecified fall, initial encounter Condition: Good Disposition: HOME, SELF-CARE Instructions: Warm Packs ([facility]), Sciatica ([facility]) Additional Instructions: Follow-up with PCP/neurosurgery in 1 to 2 days. Return for any worsening symptoms. Do not work, drive, take Tylenol, or operate machinery while taking the pain medication or muscle relaxers. Ice/heat to your back. You can get an xkpd-fne-kyttiki TENS unit and put on the area. take the medication as prescribed. Prescriptions: Hydrocodone/Acetaminophen [[place] 5-325 mg Tablet] 1 tab PO Q6 PRN #12 tablet PRN Reason: For Pain Methocarbamol [Robaxin 500 mg Tablet] 1,000 mg PO QID PRN #40 tablet PRN Reason: For Pain Forms: Return to Work
[2019-08-06] MEDS ORDERED: HYDROCODONE/ACETAMINOPHEN 5-325 MG TABLET PO ONE (20:59)
[2019-08-06] MEDS ORDERED: METHOCARBAMOL 500 MG TABLET PO ONE (21:00)
[2019-08-06] MEDS ORDERED: DEXAMETHASONE SOD PHOS INJ 10 MG/1 ML VIAL INJ ONE (21:00)
[2019-08-06 21:40] VITALS: BP 118/82
== END 2019-08-06 21:41 | disposition home or self-care (01) ==
LOC: ER 14:03
DX: M54.41 Lumbago with sciatica, right side (principal); M54.42 Lumbago with sciatica, left side; W19.XXXA Unspecified fall, initial encounter; F17.200 Nicotine dependence, unspecified, uncomplicated
CPT/HCPCS: 99283; 96374; 72110; J1100

== ENCOUNTER 2019-09-16 14:59 | Emergency (ER) | payer SELFPAY ==
[2019-09-16 15:30] VITALS: BP 119/82
[2019-09-16] MEDS ORDERED: ACETAMINOPHEN 325 MG TABLET PO ONE (15:30)
[2019-09-16] MEDS ORDERED: ONDANSETRON 4 MG TAB.RAPDIS PO ONE (15:30)
--- NOTE | 2019-09-16 15:30 | ER Document Report ---
ED Medical Screen (RME) - General Chief Complaint: Headache Stated Complaint: HEADACHE/BACK PAIN Time Seen by Provider: 09/16/19 15:27 Mode of Arrival: Ambulatory Information source: Patient Notes: 38-year-old female presented to ED for complaint of headache and back pain. She states her headache has been for 3 days and the back pain has been for months. She states she was here in the emergency room last month for the back pain. She said she has had headaches before but does not like she has a chronic problem. Patient is alert oriented respirations regular nonlabored speaking in full sentences walks with even steady gait. Patient states she smokes about 1/2 pack does not drink or do any kind of drugs. Last menstrual cycle started today. I have greeted and performed a rapid initial assessment of this patient. A comprehensive ED assessment and evaluation of the patient, analysis of test results and completion of medical decision making process will be conducted by an additional ED providers. TRAVEL OUTSIDE OF THE [place] IN LAST 30 DAYS: No - Related Data Allergies/Adverse Reactions: No Known Allergies Allergy (Verified 07/01/19 15:34) Past Medical History - Social History Family history: Other - copd - Past Medical History Cardiac Medical History: Reports: Hx Hypertension - not being treated Pulmonary Medical History: Reports: Hx Bronchitis Renal/ Medical History: Denies: Hx Kidney Stones, Hx Peritoneal Dialysis Past Surgical History: Denies: Hx Genitourinary Surgery, Hx Neurologic Surgery, Hx Orthopedic Surgery - Immunizations Immunizations up to date: No Hx Diphtheria, Pertussis, Tetanus Vaccination: No
[2019-09-16] MEDS ORDERED: KETOROLAC TROMETHAMINE 60 MG/2 ML SDV IM ONE (16:21)
[2019-09-16] MEDS ORDERED: DIPHENHYDRAMINE HCL 25 MG CAPSULE PO ONE (16:21)
--- NOTE | 2019-09-16 16:25 | ER Document Report ---
HPI - HPI Patient complains to provider of: Headache chronic low back pain Time Seen by Provider: 09/16/19 15:27 Onset: Other - 3 days for headache Quality of pain: Achy Pain Level: 4 Context: This 38-year-old female with history of chronic low back pain presents emergency department with complaints of headache to the top of her head for the past 3 days and her chronic low back pain. She reports she is taking Excedrin without relief of symptoms. She reports she had to call in work today at [employer]. She denies trauma. Denies recent heavy lifting. Denies fever vomiting diarrhea. Denies urinary bowel incontinence or retention. Denies paresthesia. She reports the light irritates her headache more. She also reports that she vomited due to the pain. Patient also reports she has a lot of people at home. Associated Symptoms: Headache Exacerbated by: Denies Relieved by: Denies Similar symptoms previously: Yes Recently seen / treated by doctor: No - NEURO Neurology: REPORTS: Headache - REPRODUCTIVE LMP: 09/16/19 Reproductive: DENIES: : Past Medical History - General Information source: Patient Last Menstrual Period: Current - Social History Smoking Status: Current Every Day Smoker Cigarette use (# per day): Yes Chew tobacco use (# tins/day): No Frequency of alcohol use: Occasional Drug Abuse: None Occupation: [employer] Lives with: Family Family History: Reviewed & Not Pertinent Patient has suicidal ideation: No Patient has homicidal ideation: No - Past Medical History Cardiac Medical History: Reports: Hx Hypertension - not being treated Pulmonary Medical History: Reports: Hx Bronchitis Renal/ Medical History: Denies: Hx Kidney Stones, Hx Peritoneal Dialysis Past Surgical History: Denies: Hx Genitourinary Surgery, Hx Neurologic Surgery, Hx Orthopedic Surgery - Immunizations Immunizations up to date: No Hx Diphtheria, Pertussis, Tetanus Vaccination: No Vertical Provider Document - CONSTITUTIONAL Agree With Documented VS: Yes Exam Limitations: No Limitations General Appearance: WD/WN, No Apparent Distress - INFECTION CONTROL TRAVEL OUTSIDE OF THE [place] IN LAST 30 DAYS: No - HEENT HEENT: Atraumatic, Normal ENT Exam, Normocephalic, PERRLA. negative: Conjuctival Injection, Pharyngeal Erythema, Tympanic Membrane Red - NECK Neck: Normal Inspection, Supple. negative: Lymphadenopathy-Left, Lymphadenopathy-Right - RESPIRATORY Respiratory: Breath Sounds Normal, No Respiratory Distress - CARDIOVASCULAR Cardiovascular: Regular Rate, Regular Rhythm - GI/ABDOMEN Gastrointestinal: Abdomen Soft, Abdomen Non-Tender - BACK Back: Normal Inspection - MUSCULOSKELETAL/EXTREMETIES Musculoskeletal/Extremeties: NATHANIEL DIAZ - NEURO Level of Consciousness: Awake, Alert, Appropriate Motor/Sensory: No Motor Deficit - DERM Integumentary: Warm, Dry Course - Re-evaluation Re-evalutation: 09/16/19 19:21 38-year-old female with history of chronic low back pain and headache. Was treated with Tylenol and Zofran upon arrival. Reports headache still but no further nausea. Patient was instructed on Toradol and Benadryl for headache. Instructed to follow-up with the [facility] for evaluation of her chronic low back pain and referral as indicated. She verbalized understanding to all instructions. Dictation of this chart was performed using voice recognition software; therefore, there may be some unintended grammatical errors.. - Vital Signs Vital signs: Temp Pulse Resp BP Pulse Ox 98.3 F 95 16 119/82 100 09/16/19 15:24 09/16/19 15:24 09/16/19 15:24 09/16/19 15:24 09/16/19 15:24 Discharge - Discharge Clinical Impression: Headache Qualifiers: Headache type: unspecified Headache chronicity pattern: unspecified pattern Intractability: not intractable Qualified Code(s): R51 - Headache Chronic back pain Qualifiers: Back pain location: low back pain Back pain laterality: unspecified Sciatica presence: with sciatica Sciatica laterality: sciatica laterality unspecified Qualified Code(s): M54.40 - Lumbago with sciatica, unspecified side Condition: Stable Disposition: HOME, SELF-CARE Instructions: [facility], Chronic Back Pain ([facility]), Use of Diphenhydramine, Headache ([facility]), Toradol Injection ([facility]) Additional Instructions: *You have been evaluated for headache and chronic low back pain * take benadryl and tylenol as indicated *rest *Follow up with the [facility] within one week *Return to ED for worsening condition, changes, needs Forms: Return to Work
== END 2019-09-16 16:46 | disposition home or self-care (01) ==
LOC: ER 14:59
DX: R51 Headache (principal); G89.29 Other chronic pain; M54.40 Lumbago with sciatica, unspecified side; R11.10 Vomiting, unspecified; F17.210 Nicotine dependence, cigarettes, uncomplicated; I10 Essential (primary) hypertension
CPT/HCPCS: J1885; S0119; 96372; 99283

== ENCOUNTER 2019-10-31 01:26 | Emergency (ER) | payer SELFPAY ==
[2019-10-31 01:33] VITALS: BP 117/94
[2019-10-31] MEDS ORDERED: LIDOCAINE 1% INJ-PF (10 MG/ML) 30 ML SDV INJ ONE (02:19)
[2019-10-31] MEDS ORDERED: NEOMY/BACITRAC ZN/POLY OINT 15 GM TP ONE (02:21)
--- NOTE | 2019-10-31 02:37 | ER Document Report ---
ED General - General Chief Complaint: Laceration Stated Complaint: RIGHT RING FINGER LACERATION Time Seen by Provider: 10/31/19 01:58 TRAVEL OUTSIDE OF THE [place] IN LAST 30 DAYS: No - Related Data Allergies/Adverse Reactions: No Known Allergies Allergy (Verified 07/01/19 15:34) Past Medical History - Social History Smoking Status: Current Every Day Smoker Frequency of alcohol use: Social Family History: Reviewed & Not Pertinent Patient has suicidal ideation: No Patient has homicidal ideation: No - Past Medical History Cardiac Medical History: Reports: Hx Hypertension - not being treated Pulmonary Medical History: Reports: Hx Bronchitis Renal/ Medical History: Denies: Hx Kidney Stones, Hx Peritoneal Dialysis Past Surgical History: Denies: Hx Genitourinary Surgery, Hx Neurologic Surgery, Hx Orthopedic Surgery - Immunizations Immunizations up to date: No Hx Diphtheria, Pertussis, Tetanus Vaccination: No Physical Exam - Vital signs Vitals: Temp Pulse Resp BP Pulse Ox 98.0 F 107 H 16 117/94 H 97 10/31/19 01:32 10/31/19 01:32 10/31/19 01:32 10/31/19 01:32 10/31/19 01:32 - Notes Notes: Patient sustained a laceration to her right hand approximate 1 hour prior to arrival she says she caught it on the edge of the door when getting out of the car. She did not sustain a crush injury to the area. She is complaining of pain in the area increases with movement there is no numbness or tingling in the finger. Sustained a an abrasion to the third finger on the left. His medical history is unremarkable. Social history does smoke and drink. Immunizations are up-to-date Review of systems as above Physical exam vital signs are noted she is in no acute distress she is right- hand dominant. This is a problem focused exam Left upper extremity the wrist is nontender. She is got a superficial abrasion over the lateral aspect distal phalanx of the third finger. Bony tenderness. There is no subungual hematoma is the flexors and extensors are intact and full range of motion of the digits Right upper extremity the hand and wrist are nontender. She is got a properly 4 cm laceration over the ulnar side fourth proximal phalanx. Flexors and extensors are intact. Two-point discrimination is intact. She has no malrotation Course - Vital Signs Vital signs: Temp Pulse Resp BP Pulse Ox 98.0 F 107 H 16 117/94 H 97 10/31/19 01:32 10/31/19 01:32 10/31/19 01:32 10/31/19 01:32 10/31/19 01:32 Procedures - Laceration/Wound Repair Right 4th digit Wound length (cm): 4 Wound's Depth, Shape: Superficial Laceration pre-procedure: Sterile drapes applied, Shur-Clens applied Anesthetic type: 1% Lidocaine Wound explored: Clean, No foreign body removed Wound Debrided: Minimal Wound Repaired With: Sutures Suture Size/Type: 4:0 - Wound was explored with under a bloodless field there is no bony abnormalities. Underwent high-pressure irrigation and dressing applied Discharge - Discharge Clinical Impression: Laceration Disposition: HOME, SELF-CARE Instructions: Laceration Care ([facility]), Antibiotic Ointment Protection ([facility]) Additional Instructions: Please review the discharge instructions, they will tell you about your disease/injury and what you need to return to the ED for Return to the ED if you feel worse or can follow-up with your family doctor Remove the dressing in 24 hours and check the wound. Return if there is any redness or drainage. Then cover with a Band-Aid and change daily You need to have the sutures removed in 10 to 12 days Your blood pressure was elevated today needs to be rechecked again in 1 to 2 weeks to determine if need to be on medication or have your medications adjusted. Untreated hypertension can cause heart attack stroke and kidney failure You can follow-up in the clinic to have the sutures removed and blood pressure check Forms: Elevated Blood Pressure
== END 2019-10-31 03:21 | disposition home or self-care (01) ==
LOC: ER 01:26
PROC: 0HQFXZZ Repair Right Hand Skin, External Approach (ICD-10-PCS; principal; 2019-10-31)
DX: S61.214A Laceration without foreign body of right ring finger without damage to nail, initial encounter (principal); W22.8XXA Striking against or struck by other objects, initial encounter; F17.200 Nicotine dependence, unspecified, uncomplicated; I10 Essential (primary) hypertension
CPT/HCPCS: 99282; J3490

== ENCOUNTER 2019-11-01 13:01 | Emergency (ER) | payer SELFPAY ==
[2019-11-01] MEDS ORDERED: DIPH/PERTUSS(ACELL)/TETANUS VAC/PF 0.5 ML SYR (>=10YO) IM ONE (13:12)
[2019-11-01] MEDS ORDERED: IBUPROFEN 400 MG TABLET PO ONE (13:12)
[2019-11-01] MEDS ORDERED: ACETAMINOPHEN 325 MG TABLET PO ONE (13:12)
[2019-11-01 13:14] VITALS: BP 138/82
--- NOTE | 2019-11-01 13:17 | ER Document Report ---
HPI - HPI Time Seen by Provider: 11/01/19 13:08 Notes: Patient is a 39-year-old female with no significant past medical history presents for recheck after she was here yesterday for finger laceration repair to her right hand. Patient states that she has had some mild swelling associated to the finger itself, but also did not get a tetanus shot which she is concerned about. She is otherwise able to eat and drink without difficult he. She is urinating normally. The pain does radiate up into the hand. She has not noticed any purulent discharge or redness associated. Denies any headache, fever, neck pain, URI, sore throat, chest pain, palpitations, syncope, cough, shortness of breath, wheeze, dyspnea, abdominal pain, nausea/vomiting/diarrhea, urinary retention, dysuria, hematuria, loss of control of bowel or bladder, numbness/tingling, muscle paralysis/weakness, or rash. - ROS Systems Reviewed and Negative: Yes All other systems reviewed and negative - REPRODUCTIVE Reproductive: DENIES: : Past Medical History - Social History Smoking Status: Unknown if Ever Smoked Family History: Reviewed & Not Pertinent - Past Medical History Cardiac Medical History: Reports: Hx Hypertension - not being treated Pulmonary Medical History: Reports: Hx Bronchitis Renal/ Medical History: Denies: Hx Kidney Stones, Hx Peritoneal Dialysis Past Surgical History: Denies: Hx Genitourinary Surgery, Hx Neurologic Surgery, Hx Orthopedic Surgery - Immunizations Immunizations up to date: No Hx Diphtheria, Pertussis, Tetanus Vaccination: No Vertical Provider Document - CONSTITUTIONAL Agree With Documented VS: Yes Notes: PHYSICAL EXAMINATION: GENERAL: Well-appearing, well-nourished and in no acute distress. HEAD: Atraumatic, normocephalic. NECK: Normal range of motion, supple without lymphadenopathy. No midline tenderness. LUNGS: Breath sounds clear to auscultation bilaterally and equal. No wheezes rales or rhonchi. HEART: Regular rate and rhythm without murmurs, rubs, gallops. Musculoskeletal: Rt hand/wrist: + [address] s/p repair ulnar 4th finger. + mild swelling to the finger, expected. No erythema, warmth, ecchymosis, purulence, deformity noted. N/V intact distal. FROM to passive/active. Strength 5+/5. No scaphoid tenderness. No other bony tenderness. Extremities: No cyanosis, clubbing, or edema b/l. Peripheral pulses 2+. Capillary refill less than 3 seconds. NEUROLOGICAL: Normal speech, normal gait. Normal sensory, motor exams otherwise unremarkable PSYCH: Normal mood, normal affect. SKIN: see above. No rash - INFECTION CONTROL TRAVEL OUTSIDE OF THE [place] IN LAST 30 DAYS: No Course - Re-evaluation Re-evalutation: 11/01/19 13:14 Patient is an afebrile, well-hydrated, 39-year-old female who presents to the ED for wound recheck. Vitals are acceptable without any significant tachycardia, tachypnea, or hypoxia. PE is otherwise unremarkable for any neurovascular compromise, obvious tendon/ligament rupture, obvious fracture/dislocation, septic joint. There is no evidence of wound dehiscence or infection at this time. Tylenol/Motrin given today. Tetanus updated today. Patient is nontoxic- appearing. No other labs or imaging warranted at this time based on H&P. Wound instructions as previously reviewed. Conservative measures otherwise for symptoms. Recheck with your PCM in 3-5 days. Consider consult orthopedics. Return to the ED with any worsening/concerning symptoms otherwise as reviewed in discharge. Patient is in agreement. Discharge - Discharge Clinical Impression: Encounter for wound re-check Condition: Stable Disposition: HOME, SELF-CARE Additional Instructions: Do not shower or bathe for 24 hours. After 24 hours you may shower but no submersion of the wound under water. Keep the original dressing on the wound for 24 hours unless the drainage soaks through. Change the dressing daily thereafter and keep the knots of the suture material clean from any dried discharge. You may leave the wound open to the air once there is no more discharge. See your PCM in 2-3 days for a recheck. Monitor for any signs of worsening pain or redness, purulent drainage, streaks, and/or fever. Return to the ED if noticing any of the above symptoms or as needed. Take medications as directed. Your sutures will need to be removed in 10 days. Prescriptions: Cephalexin Monohydrate [Keflex 500 mg Capsule] 500 mg PO BID #14 capsule Forms: Elevated Blood Pressure Referrals: VAISHNAVI BUI MD [NO LOCAL MD] - Follow up as needed
== END 2019-11-01 13:47 | disposition home or self-care (01) ==
LOC: ER 13:01
DX: S61.214D Laceration without foreign body of right ring finger without damage to nail, subsequent encounter (principal); S61.511D Laceration without foreign body of right wrist, subsequent encounter; X58.XXXD Exposure to other specified factors, subsequent encounter; Z23 Encounter for immunization
CPT/HCPCS: 99282; 90471; 90715; J3490

== ENCOUNTER 2019-11-27 04:42 | Emergency (ER) | payer SELFPAY ==
--- NOTE | 2019-11-27 06:53 | ER Document Report ---
ED Flu Like - General Chief Complaint: Flu Symptoms Stated Complaint: HEADACHE VOMITING Time Seen by Provider: 11/27/19 06:48 Mode of Arrival: Ambulatory Information source: Patient Notes: 39-year-old female presents to ED for cough cold congestion nausea vomiting and diarrhea for the last 2 to 3 days. She states she is also had fevers and chills. She states her last temp was 100.9 yesterday around 1:00 in the afternoon. Patient states her last menstrual period was in the middle of Nove mb but she is not she is not sexually active at this time. TRAVEL OUTSIDE OF THE [place] IN LAST 30 DAYS: No - HPI Onset: Other Timing/Duration: Intermittent Quality of pain: Achy, Cramping Severity: Moderate Pain Level: 3 Associated symptoms: Body/muscle aches, Nonproductive cough, Diarrhea, Fever, Na usea, Vomiting, Rhinnorhea, Sinus pain/drainage Similar symptoms previously: Yes Recently seen / treated by doctor: No - Related Data Allergies/Adverse Reactions: No Known Allergies Allergy (Verified 11/01/19 13:14) Past Medical History - General Information source: Patient - Social History Smoking Status: Current Every Day Smoker Cigarette use (# per day): Yes - 3 to 4 cigarettes a day Smoking Education Provided: Yes - 4 minutes Frequency of alcohol use: Every other day 3-4 Drug Abuse: None 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 [email or web address] Lives with: Family Family History: Reviewed & Not Pertinent Patient has suicidal ideation: No Patient has homicidal ideation: No - Past Medical History Cardiac Medical History: Reports: Hx Hypertension - not being treated Pulmonary Medical History: Reports: Hx Bronchitis EENT Medical History: Reports: None Neurological Medical History: Reports: None Endocrine Medical History: Reports: None Renal/ Medical History: Reports: None Malignancy Medical History: Reports: None GI Medical History: Reports: None Musculoskeletal Medical History: Reports Hx Musculoskeletal Trauma Skin Medical History: Reports None Psychiatric Medical History: Reports: None Traumatic Medical History: Reports: None Infectious Medical History: Reports: None Surgical Hx: Negative Past Surgical History: Reports: None - Immunizations Immunizations up to date: No Hx Diphtheria, Pertussis, Tetanus Vaccination: No Review of Systems - Review of Systems Constitutional: No symptoms reported EENT: No symptoms reported Cardiovascular: No symptoms reported Respiratory: No symptoms reported Gastrointestinal: No symptoms reported Genitourinary: No symptoms reported Female Genitourinary: No symptoms reported Musculoskeletal: No symptoms reported Skin: No symptoms reported Hematologic/Lymphatic: No symptoms reported Neurological/Psychological: No symptoms reported -: Yes All other systems reviewed and negative Physical Exam - Vital signs Vitals: Temp Pulse Resp BP Pulse Ox 98.1 F 97 20 131/87 H 99 11/27/19 04:49 11/27/19 04:49 11/27/19 04:49 11/27/19 04:49 11/27/19 04:49 Interpretation: Normal - General General appearance: Appears well, Alert - HEENT Head: Normocephalic, Atraumatic Eyes: Normal Pupils: PERRL Ears: Normal External canal: Normal Tympanic membrane: Normal Sinus: Normal Nasal: Purulent discharge, Swelling Mouth/Lips: Normal Mucous membranes: Normal Pharynx: Normal Neck: Normal - Respiratory Respiratory status: No respiratory distress Chest status: Nontender Breath sounds: Normal Chest palpation: Normal - Cardiovascular Rhythm: Regular Heart sounds: Normal auscultation Murmur: No - Abdominal Inspection: Normal Distension: No distension Bowel sounds: Hyperactive Tenderness: Tender - Bilateral lower abdominal pain Organomegaly: No organomegaly - Back Back: Normal, Nontender - Extremities General upper extremity: Normal inspection, Nontender, Normal color, Normal ROM, Normal temperature General lower extremity: Normal inspection, Nontender, Normal color, Normal ROM, Normal temperature, Normal weight bearing. No: Irwin's sign - Neurological Neuro grossly intact: Yes Cognition: Normal Orientation: AAOx4 [place] Coma Scale Eye Opening: Spontaneous Emiliano Coma Scale Verbal: Oriented [place] Coma Scale Motor: Obeys Commands Emiliano Coma Scale Total: 15 Speech: Normal Motor strength normal: LUE, RUE, LLE, RLE Sensory: Normal - Psychological Associated symptoms: Normal affect, Normal mood - Skin Skin Temperature: Warm Skin Moisture: Dry Skin Color: Normal Course - Vital Signs Vital signs: Temp Pulse Resp BP Pulse Ox 98.1 F 97 20 131/87 H 99 11/27/19 04:49 11/27/19 04:49 11/27/19 04:49 11/27/19 04:49 11/27/19 04:49 - Laboratory Result Diagrams: 11/27/19 07:15 11/27/19 08:00 Laboratory results interpreted by me: 11/27/19 11/27/19 11/27/19 07:15 07:15 08:00 WBC 3.8 L MCV 98 H MCH 34.2 H Plt Count 128 L Sodium 136.0 L Potassium 3.2 L Calcium 7.9 L Total Protein 6.0 L Albumin 3.2 L Urine Ketones TRACE H Urine Blood SMALL H Urine Nitrite (Reflex) POSITIVE H Urine Urobilinogen 2.0 H Discharge - Discharge Clinical Impression: UTI (urinary tract infection) Qualifiers: Urinary tract infection type: acute cystitis Hematuria presence: without hematuria Qualified Code(s): N30.00 - Acute cystitis without hematuria URI (upper respiratory infection) Qualifiers: URI type: unspecified viral URI Qualified Code(s): J06.9 - Acute upper respiratory infection, unspecified Condition: Stable Disposition: HOME, SELF-CARE Additional Instructions: URINARY TRACT INFECTION: Your evaluation indicates that you have a urinary tract infection. This is due to germs growing in the bladder. This is a common problem. This infection usually responds quickly to antibiotics. Your antibiotic should be taken exactly as prescribed. Drink plenty of fluids -- three to four quarts a day. Occasionally, a bladder anesthetic will be prescribed to help stop the feeling of urgency until the antibiotic has a chance to clear the infection. This may cause your urine to be dark orange. Certain urine infections require a culture. If the doctor obtained a culture, the results will be back in two days. You should call to see if a change in treatment is needed. A repeat urinalysis after you finish treatment is often recommended. The physician will let you know if further testing is required. Call the doctor if you develop fever, chills, flank pain, inability to urinate, or blood in the urine. UPPER RESPIRATORY ILLNESS: You have a viral infection of the respiratory passages -- a "cold." This common infection causes nasal congestion, drainage, and often sore throat and cough. It is highly contagious. The disease usually lasts about 10 to 14 days. There is no "cure" for the viral infection -- it must run its course. If there is a complication, such as bacterial infection in the nose, sinuses, middle ear, or bronchial tubes, antibiotics may be required. The antibiotics won't affect the virus. Drink plenty of fluids. A humidifier may help. An expectorant medication or decongestant may make you more comfortable. Use acetaminophen or ibuprofen for fever or aches. See the doctor if fever persists over two days, if there is any significant worsening of your symptoms, or if you simply fail to improve as expected. You were treated with Claritin 10 mg Sudafed 30 mg and you have been taken Mucinex 600 mg. These are all [id number] medications for cough cold congestion. You do need to call the go to the pharmacist to get the Sudafed from behind the counter please get a little red pills they are more effective. He could also use Flonase which is [id number] 1 spray each nostril twice a day. He could also use salt soda solution gargles. These will help to remove the drainage from the back your throat. Chloraseptic spray was [id number] that will also help with your sore throat. Salt and soda solution gargle 1 quart of water 1 tablespoon of salt 1 teaspoon of baking soda Mixed 3 ingredients together and boil for 1 minute Placed in a covered quart jar Use 1/2 ounce of cold solution to gargle 3 times a day USE OF ACETAMINOPHEN (Tylenol): Acetaminophen may be taken for pain relief or fever control. It's much safer than aspirin, offering a wider range of "safe" dosages. It is safe during . Some brand names are Tylenol, Panadol, Datril, Anacin 3, Tempra, and Liquiprin. Acetaminophen can be repeated every four hours. The following are maximum recommended dosages: >89 pounds or adults 650 mg to 900 mg Acetaminophen can be repeated every four hours. Maximum dose not to exceed 4000 mg a day. NITROFURANTOIN (MACRODANTIN, MACROBID): You have received a prescription for nitrofurantoin (Macrodantin). This antibiotic is used for urinary tract infections. Women who are or nursing should notify the physician before taking this medicine. If you have ever had a problem caused by this medication in the past, be sure the physician is aware of it. Common side effects of this medicine include nausea, vomiting, or decreased appetite. Notify your physician if these side effects become severe. Immediately stop this medicine and call the physician if you develop cough, shortness of breath, chest pain, weakness, jaundice (yellow color of the skin and whites of the eyes), or a skin rash. SMOKING: If you smoke, you should stop smoking. The tar and chemicals in cigarette smoke are harmful. Smoking has been shown to cause: emphysema chronic bronchitis lung cancer mouth and throat cancer stomach and pancreas cancer premature aging defects In addition, smoking increases ear and lung infections in children of smokers. FOLLOW-UP CARE: If you have been referred to a physician for follow-up care, call the physicians office for an appointment as you were instructed or within the next two days. If you experience worsening or a significant change in your symptoms, notify the physician immediately or return to the Emergency Department at any time for re-evaluation. Prescriptions: Nitrofurantoin/Nitrofuran Mac [Macrobid 100 mg Capsule] 1 tab PO BID #20 capsule Forms: Elevated Blood Pressure, Smoking Cessation Education, Return to Work Referrals: [facility] [Provider Group] - Follow up as needed [facility] [Provider Group] - Follow up as needed [facility] [Provider Group] - Follow up as needed [facility] [Provider Group] - Follow up as needed [facility] [Provider Group] - Follow up as needed
[2019-11-27] MEDS ORDERED: NORMAL SALINE 1000 ML 1,000 ML IV ONE (06:59)
[2019-11-27 07:49] LABS: APPEARANCE,URINE SLIGHTLY-CLOUDY; BILIRUBIN,URINE NEGATIVE (NEGATIVE); COLOR,URINE YELLOW; GLUCOSE, URINE NEGATIVE (NEGATIVE); KETONES,URINE TRACE mg/dL (NEGATIVE); PROTEIN,URINE NEGATIVE (NEGATIVE); URINE SPECIFIC GRAVITY 1.014
[2019-11-27 07:53] LABS: ABSOLUTE LYMPHOCYTES (AUTO) 1.1 10^3/uL (0.5-4.7); ABSOLUTE MONOCYTES (AUTO) 0.5 10^3/uL (0.1-1.4); ABSOLUTE NEUT (AUTO) 2.2 10^3/uL (1.7-8.2); BASOPHILS % (AUTO) 0.4 % (0-2); EOSINOPHILS % (AUTO) 0.7 % (0-6); HEMOGLOBIN 13.9 g/dL (12.0-15.5); MEAN CORPUSCULAR HEMOGLOBIN 34.2 pg (27.0-33.4); MEAN CORPUSCULAR HGB CONC 34.8 g/dL (32.0-36.0); MEAN CORPUSCULAR VOLUME 98 fl (80-97); MONOCYTES % (AUTO) 12.2 % (3-13); PLATELET COUNT 128 10^3/uL (150-450); RED BLOOD COUNT 4.07 10^6/uL (3.72-5.28); RED CELL DISTRIBUTION WIDTH 12.9 % (11.5-14.0); SEGMENTED NEUTROPHILS % (AUTO) 58.7 % (42-78); TOTAL CELLS COUNTED % (AUTO) 100 %; WHITE BLOOD COUNT 3.8 10^3/uL (4.0-10.5)
--- NOTE | 2019-11-27 08:20 | RADIOLOGY REPORT (SQ) ---
EXAM DESCRIPTION: CHEST 2 VIEWS COMPLETED DATE/TIME: 11/27/2019 7:48 am REASON FOR STUDY: cough congestion COMPARISON: 01/01/2019 TECHNIQUE: Frontal and lateral radiographic views of the chest acquired. NUMBER OF VIEWS: Two view. LIMITATIONS: None. FINDINGS: LUNGS AND PLEURA: No opacities, masses or pneumothorax. No pleural effusion. MEDIASTINUM AND HILAR STRUCTURES: No masses or contour abnormalities. HEART AND VASCULAR STRUCTURES: Heart normal size. No evidence for failure. BONES: No acute findings. HARDWARE: None in the chest. OTHER: No other significant finding. IMPRESSION: NO SIGNIFICANT RADIOGRAPHIC FINDING IN THE CHEST. TECHNICAL DOCUMENTATION: JOB ID: [id number] [employer]- All Rights Reserved Reading location - IP/workstation name: [place]
[2019-11-27 08:25] LABS: A TYPE INFLUENZA AG NEGATIVE (NEGATIVE); B INFLUENZA AG NEGATIVE (NEGATIVE)
[2019-11-27 08:36] LABS: ALBUMIN 3.2 g/dL (3.5-5.0); ALKALINE PHOSPHATASE 52 U/L (38-126); ANION GAP 8 (5-19); ASPARTATE AMINO TRANSFERASE 22 U/L (14-36); BILIRUBIN,DIRECT 0.2 mg/dL (0.0-0.4); BILIRUBIN,TOTAL 0.3 mg/dL (0.2-1.3); BLOOD UREA NITROGEN 14 mg/dL (7-20); CALCIUM 7.9 mg/dL (8.4-10.2); CARBON DIOXIDE 26 mmol/L (22-30); CHLORIDE 102 mmol/L (98-107); GLUCOSE 91 mg/dL (75-110); POTASSIUM 3.2 mmol/L (3.6-5.0)
[2019-11-27] MEDS ORDERED: NITROFURANTOIN MONOHYD/M-CRYST 100 MG CAPSULE PO ONE (09:11)
[2019-11-27] MEDS ORDERED: PSEUDOEPHEDRINE HCL 30 MG TABLET PO ONE (09:11)
[2019-11-27] MEDS ORDERED: GUAIFENESIN 600 MG TABLET.SA PO ONE (09:11)
[2019-11-27] MEDS ORDERED: LORATADINE 10 MG TABLET PO ONE (09:11)
[2019-11-27 10:12] VITALS: BP 123/77
== END 2019-11-27 10:38 | disposition home or self-care (01) ==
LOC: ER 04:42
DX: N30.00 Acute cystitis without hematuria (principal); J06.9 Acute upper respiratory infection, unspecified; R51 Headache; R11.2 Nausea with vomiting, unspecified; R19.7 Diarrhea, unspecified; M79.10 Myalgia, unspecified site; R50.9 Fever, unspecified; F17.210 Nicotine dependence, cigarettes, uncomplicated
CPT/HCPCS: 99283; 96360; 96361; 36415; 87086; 84703; 85025; 87088; 80053; 81001; 87186; 87804; 71046; J7030; J8499

== ENCOUNTER 2020-04-17 03:06 | Emergency (ER) | payer OTHER ==
--- NOTE | 2020-04-17 04:05 | ER Document Report ---
ED General - General Chief Complaint: Syncope Stated Complaint: POSSIBLE SYNCOPE Time Seen by Provider: 04/17/20 03:39 Notes: 39-year-old female presents emergency department after a syncopal episode at work. Patient states that she was at work and walking into the walk-in cooler to check it and the next thing she knows she was lying on her back in the cooler. 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 Patient states that it was approximately 2:00 when she walked into the coolers and she was not able to call her friend until about 225. States that she was not unconscious for this entire time, states that she thi nks she spent part of that time trying to get up and get to a phone but she just moved slowly enough that it took her a while to get there. Patient now complains of pain from her upper neck to her mid to low back. Denies any numbness, tingling, weakness. Denies any pain anywhere other than her neck and her back. Denies any head pain, denies any nausea or vomiting. Denies any prior loss of consciousness, history of seizures and does not take any blood thinners. TRAVEL OUTSIDE OF THE [place] IN LAST 30 DAYS: No - Related Data Allergies/Adverse Reactions: No Known Allergies Allergy (Verified 04/17/20 03:16) Home Medications: melatonin Past Medical History - General Information source: Patient - Social History Smoking Status: Current Every Day Smoker Frequency of alcohol use: None Drug Abuse: None Family History: Reviewed & Not Pertinent Patient has homicidal ideation: No - Past Medical History Cardiac Medical History: Reports: Hx Hypertension - not being treated Pulmonary Medical History: Reports: Hx Bronchitis Renal/ Medical History: Denies: Hx Kidney Stones, Hx Peritoneal Dialysis Musculoskeletal Medical History: Reports Hx Musculoskeletal Trauma Past Surgical History: Denies: Hx Genitourinary Surgery, Hx Neurologic Surgery, Hx Orthopedic Surgery - Immunizations Immunizations up to date: No Hx Diphtheria, Pertussis, Tetanus Vaccination: No Review of Systems - Review of Systems Constitutional: No symptoms reported EENT: No symptoms reported Cardiovascular: See HPI, Syncope Respiratory: No symptoms reported Musculoskeletal: See HPI, Back pain, Neck pain Neurological/Psychological: See HPI, Lost consciousness. denies: Headaches, Numbness, Tingling -: Yes All other systems reviewed and negative Physical Exam - Vital signs Vitals: Temp 98.2 F 04/17/20 03:16 Interpretation: Tachycardic - Notes Notes: GENERAL: Alert, interacts well. No acute distress. Able to transfer from wheelchair to bed without difficulty. HEAD: Normocephalic, atraumatic EYES: Pupils equal, round and reactive to light, extraocular movements intact. ENT: Oral mucosa moist, tongue midline. NECK: Neck restrained in a cervical collar, no midline bony tenderness to palpation, no step-offs or deformities. LUNGS: Clear to auscultation bilaterally, no wheezes, rales or rhonchi, no respiratory distress. HEART: Regular rate and rhythm, no murmurs, gallops, rubs. ABDOMEN: Soft, nontender, nondistended, bowel sounds present in all 4 quadrants. BACK: No step-offs or deformities, no midline bony tenderness to palpation, there is paraspinal tenderness to palpation, no abrasions or ecchymoses, no signs of trauma. EXTREMITIES: Moves all 4 extremities spontaneously, no edema, radial and dorsalis pedis pulses 2/4 bilaterally. No cyanosis. NEUROLOGICAL: Alert and oriented x3, normal speech, cranial nerves II through XII grossly intact, biceps and patellar DTRs 2+ bilaterally. Finger-nose and [id number] testing intact. 5 out of 5 muscle strength in all 4 extremities, great toe raising strength 5 out of 5 bilaterally. PSYCH: Normal mood, normal affect. SKIN: Warm, Dry, normal turgor, no rashes or lesions noted. Course - Re-evaluation Re-evalutation: 04/17/20 05:05 CBC unremarkable, CMP unremarkable, HCG negative. CT of the head negative for any acute process. 04/17/20 06:16 Cervical Spine X-Ray 04/17/20 00:00 IMPRESSION: No acute findings of XR CERVICAL SPINE [address] 04/17/20 03:56 IMPRESSION: No acute intracranial abnormality. Lumbar Spine X-Ray 04/17/20 03:56 IMPRESSION: No acute abnormality. Thoracic Spine X-Ray 04/17/20 03:56 IMPRESSION: No acute findings of XR THORACIC SPINE 2 VIEWS. . Cervical collar removed, able to move through full range of motion, no restrictions noted. No paresthesias with movement. Patient has not had any ectomy or dysrhythmias while on the monitor. Patient is neurologically intact. No evidence of seizure. At present I discussed with the patient that they do not know why she had a syncopal episode, encouraged the patient not to drive for the next 24 hours, return to the emergency department for chest pain or trouble breathing, recurrent syncope or any new or concerning symptoms. Patient is agreeable to this plan. Patient request something for the pain in her neck and her back, patient is advised to use ibuprofen for the next 24 hours, after that she may start taking the Robaxin I have prescribed as well. Patient is aware I do not want her taking Robaxin for 24 hours as it can make her sleepy and may make it difficult to tell if she is getting sleepy because of what ever made her pass out or because of the Robaxin. - Vital Signs Vital signs: Temp Pulse Resp BP Pulse Ox 98.2 F 108 H 18 130/75 H 100 04/17/20 03:21 04/17/20 03:21 04/17/20 03:21 04/17/20 03:21 04/17/20 03:21 - Laboratory Result Diagrams: 04/17/20 03:57 04/17/20 03:57 Laboratory results interpreted by me: 04/17/20 04/17/20 03:57 03:57 MCV 98 H Sodium 135.8 L - EKG Interpretation by Me Additional EKG results interpreted by me: 04/17/20 06:18 EKG shows sinus rhythm at a rate of 97, normal axis, normal intervals, no ST segment elevations or depressions, there are T wave inversions noted in V2 and flattening in V3 per my interpretation. Discharge - Discharge Clinical Impression: Neck pain Syncopal episodes Qualifiers: Syncope type: unspecified Qualified Code(s): R55 - Syncope and collapse Back pain Qualifiers: Back pain location: thoracic back pain Chronicity: acute Back pain laterality: midline Qualified Code(s): M54.6 - Pain in thoracic spine Condition: Stable Disposition: HOME, SELF-CARE Additional Instructions: Syncopal Episode Syncope (fainting or near-fainting) can occur from many different health problems. Or it can be a simple fainting spell requiring no treatment. It is safe for you to go home, but further evaluation will likely be necessary. Your work-up may include tests for internal bleeding, heart disease, medication problems, or near-strokes. Tests are not always required, however, depending on the nature of your problem. The warning signs of an impending faint include: dizziness, lightheadedness, nausea, hot flashes, tingling, and weakness. If this happens, lay down and put your feet up, then wait until all of these symptoms have passed before standing up again. If these episodes become recurrent, or if you develop chest pain, heart palpitations, mental confusion, blurred vision, or headache, then you should call the physician, or go to the emergency room. Please use ibuprofen (Motrin or Advil) 600-800 mg every 8 hours as needed for pain or fever. You may also use acetaminophen (Tylenol) 1000 mg every 4-6 hours as needed for pain or fever. Please be aware that many medications contain acetaminophen, do not exceed a total of 1000 mg of acetaminophen every 6 hours. You may start taking the Robaxin tomorrow. This is a muscle relaxer. Do not take it for the next 24 hours as it can make you tired. Prescriptions: Methocarbamol [Robaxin 750 mg Tablet] 1 - 2 tab PO Q8HP PRN #20 tablet PRN Reason: Forms: Return to Work
[2020-04-17 04:31] LABS: ABSOLUTE BASOPHILS # (AUTO) 0.1 10^3/uL (0.0-0.2); ABSOLUTE EOSINOPHILS # (AUTO) 0.1 10^3/uL (0.0-0.6); ABSOLUTE LYMPHOCYTES (AUTO) 2.3 10^3/uL (0.5-4.7); ABSOLUTE MONOCYTES (AUTO) 0.6 10^3/uL (0.1-1.4); ABSOLUTE NEUT (AUTO) 4.3 10^3/uL (1.7-8.2); BASOPHILS % (AUTO) 0.7 % (0-2); EOSINOPHILS % (AUTO) 1.9 % (0-6); HEMATOCRIT 40.5 % (36.0-47.0); HEMOGLOBIN 13.9 g/dL (12.0-15.5); LYMPHOCYTES % (AUTO) 31.4 % (13-45); MEAN CORPUSCULAR HEMOGLOBIN 33.4 pg (27.0-33.4); MEAN CORPUSCULAR HGB CONC 34.2 g/dL (32.0-36.0); MEAN CORPUSCULAR VOLUME 98 fl (80-97); MONOCYTES % (AUTO) 8.5 % (3-13); PLATELET COUNT 281 10^3/uL (150-450); RED BLOOD COUNT 4.15 10^6/uL (3.72-5.28); RED CELL DISTRIBUTION WIDTH 13.1 % (11.5-14.0); SEGMENTED NEUTROPHILS % (AUTO) 57.5 % (42-78); TOTAL CELLS COUNTED % (AUTO) 100 %; WHITE BLOOD COUNT 7.4 10^3/uL (4.0-10.5)
[2020-04-17 04:41] LABS: ALBUMIN 4.1 g/dL (3.5-5.0); ALKALINE PHOSPHATASE 58 U/L (38-126); ANION GAP 6 (5-19); ASPARTATE AMINO TRANSFERASE 18 U/L (14-36); BILIRUBIN,TOTAL 0.4 mg/dL (0.2-1.3); BLOOD UREA NITROGEN 20 mg/dL (7-20); CALCIUM 9.4 mg/dL (8.4-10.2); CARBON DIOXIDE 27 mmol/L (22-30); CHLORIDE 103 mmol/L (98-107); CREATINE KINASE 33 U/L (30-135); GLUCOSE 102 mg/dL (75-110); POTASSIUM 4.4 mmol/L (3.6-5.0); TOTAL PROTEIN 7.5 g/dL (6.3-8.2)
[2020-04-17 04:57] LABS: TROPONIN I < 0.012 ng/mL
--- NOTE | 2020-04-17 05:00 | RADIOLOGY REPORT (SQ) ---
CT head without contrast on 04/17/2020 at 4:12 AM CLINICAL INDICATION: Loss of consciousness TECHNIQUE: Multiple axial images are obtained throughout the head without the administration of contrast. This exam was performed according to our departmental dose-optimization program, which includes automated exposure control, adjustment of the mA and/or kV according to patient size and/or use of iterative reconstruction technique. Total DLP is 1043.77 mGy*cm. COMPARISON: None FINDINGS: There is no hydrocephalus. There is no CT evidence of acute infarct. There is no hemorrhage. There are no abnormal extra-axial fluid collections. There is no mass, mass effect or midline shift. No bony abnormality is noted. Mucosal thickening is noted in the floor of the right maxillary sinus. IMPRESSION: No acute intracranial abnormality.
--- NOTE | 2020-04-17 05:11 | RADIOLOGY REPORT (SQ) ---
Lumbar spine five view on 04/17/2020 at 4:50 AM CLINICAL INDICATION: Back pain after fall COMPARISON: 08/06/2019 FINDINGS: The lumbar spine is well aligned. Disc space height is well-maintained. There are no fractures. No bony abnormality is noted. IMPRESSION: No acute abnormality.
--- NOTE | 2020-04-17 05:21 | RADIOLOGY REPORT (SQ) ---
EXAM DESCRIPTION: XR THORACIC SPINE 2 VIEWS COMPLETED DATE/TME: 04/17/2020 03:56 CLINICAL HISTORY: 39 years Female, fall, neck and back pain COMPARISON: None. Findings: Normal alignment and curvature. Vertebral heights are maintained. Extraspinal structures are grossly intact. IMPRESSION: No acute findings of XR THORACIC SPINE 2 VIEWS. .
--- NOTE | 2020-04-17 05:21 | RADIOLOGY REPORT (SQ) ---
EXAM DESCRIPTION: XR CERVICAL SPINE 2 - 3 VIEWS COMPLETED DATE/TME: 04/17/2020 00:00 CLINICAL HISTORY: 39 years Female, PAIN COMPARISON: None. Findings: Normal alignment and curvature. Vertebral heights are maintained. Extraspinal structures are grossly intact. IMPRESSION: No acute findings of XR CERVICAL SPINE 3 VIEWS. .
[2020-04-17 06:43] VITALS: BP 121/84
--- NOTE | 2020-04-17 08:13 | EKG REPORT ---
SEVERITY:- ABNORMAL ECG - SINUS RHYTHM LEFT ATRIAL ABNORMALITY BORDERLINE T ABNORMALITIES, ANTERIOR LEADS : Confirmed by: Radha Lawrence MD 17-Apr-2020 08:12:45
== END 2020-04-17 06:44 | disposition home or self-care (01) ==
LOC: ER 03:06
DX: R55 Syncope and collapse (principal); M54.5 Low back pain; M54.2 Cervicalgia; M54.9 Dorsalgia, unspecified; F17.200 Nicotine dependence, unspecified, uncomplicated; I10 Essential (primary) hypertension
CPT/HCPCS: 36415; 70450; 72040; 72070; 72110; 80053; 82550; 82553; 84484; 84703; 85025; 93005; 93010; 99284

== ENCOUNTER 2020-10-08 01:30 | Emergency (ER) | payer SELFPAY ==
--- NOTE | 2020-10-08 03:41 | RADIOLOGY REPORT (SQ) ---
CHEST X-RAY 2 view on 10/08/2020 at 2:43 AM CLINICAL INDICATION: Bone pain COMPARISON: 11/27/2019 FINDINGS: The lungs are clear. Cardiac, hilar and mediastinal contours are within normal limits. Pulmonary vascularity is within normal limits. No bony abnormality is noted. IMPRESSION: No active disease.
[2020-10-08 05:02] VITALS: BP 128/82
--- NOTE | 2020-10-08 06:07 | ER Document Report ---
ED General - General Chief Complaint: Chest Wall Pain Stated Complaint: CHEST INJURY Primary Care Provider: [facility] [Provider Group] - Follow up in 1 week (for primary care follow up) TRAVEL OUTSIDE OF THE [place] IN LAST 30 DAYS: No - HPI Notes: 39-year-old female to the emergency department with complaints of anterior chest pain that began Thursday night after she dropped a 50 pound box of soda on her chest. 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 She states it pinned her against an ice machine. She denies any other injuries. She states that since then she is having pain when she takes a big deep breath and with movement. She states she took some Tylenol earlier and it took "the edge off". Denies any shortness of breath. - Related Data Allergies/Adverse Reactions: No Known Allergies Allergy (Verified 04/17/20 03:16) Past Medical History - General Information source: Patient - Social History Smoking Status: Current Every Day Smoker Frequency of alcohol use: Occasional Drug Abuse: None Family History: Reviewed & Not Pertinent - Past Medical History Cardiac Medical History: Reports: Hx Hypertension - not being treated Pulmonary Medical History: Reports: Hx Bronchitis Renal/ Medical History: Denies: Hx Kidney Stones, Hx Peritoneal Dialysis Musculoskeletal Medical History: Reports Hx Musculoskeletal Trauma Past Surgical History: Denies: Hx Genitourinary Surgery, Hx Neurologic Surgery, Hx Orthopedic Surgery - Immunizations Immunizations up to date: No Hx Diphtheria, Pertussis, Tetanus Vaccination: No Review of Systems - Review of Systems Constitutional: denies: Chills, Fever EENT: No symptoms reported Cardiovascular: Chest pain - See HPI. denies: Palpitations, Heart racing, Orthopnea, Dyspnea, Syncope, Dizziness, Lightheaded Respiratory: denies: Cough, Short of breath Gastrointestinal: denies: Abdominal pain, Diarrhea, Nausea, Vomiting Genitourinary: denies: Flank pain Musculoskeletal: denies: Back pain, Joint pain, Joint swelling Skin: No symptoms reported Hematologic/Lymphatic: No symptoms reported Neurological/Psychological: No symptoms reported -: Yes All other systems reviewed and negative Physical Exam - Vital signs Vitals: Temp Pulse Resp BP Pulse Ox 98.6 F 85 16 126/87 H 100 10/08/20 02:03 10/08/20 02:03 10/08/20 02:03 10/08/20 02:03 10/08/20 02:03 Interpretation: Normal - General General appearance: Appears well, Alert In distress: None Notes: Initially sleeping when I enter the room but is easily awoken with light touch and voice;she is in no acute distress - HEENT Head: Normocephalic, Atraumatic Eyes: Normal Pupils: PERRL Neck: Normal, Supple - Respiratory Respiratory status: No respiratory distress Chest status: Tender - There is tenderness to palpation over the anterior chest wall. There is no ecchymosis, crepitus, step-off. She also has increased pain with movement, with cough, deep breath, Pain on movement, Pain with cough, Pain with deep breathing. No: Accessory muscle use Breath sounds: Normal. No: Rales, Rhonchi, Wheezing Chest palpation: Normal. No: Flail segment, Subcutaneous emphysema - Cardiovascular Rhythm: Regular Heart sounds: Normal auscultation Murmur: No - Abdominal Inspection: Normal Distension: No distension Bowel sounds: Normal Tenderness: Nontender. No: Tender, McBurney's point, Jonas's sign, Guarding, Rebound Organomegaly: No organomegaly - Back Back: Normal, Nontender. No: CVA tenderness - Extremities General upper extremity: Normal inspection, Nontender, Normal color, Normal ROM, Normal temperature General lower extremity: Normal inspection, Nontender, Normal color, Normal ROM, Normal temperature, Normal weight bearing - Neurological Neuro grossly intact: Yes Cognition: Normal Orientation: AAOx4 Emiliano Coma Scale Eye Opening: Spontaneous Emiliano Coma Scale Verbal: Oriented Emiliano Coma Scale Motor: Obeys Commands [place] Coma Scale Total: 15 Speech: Normal Cranial nerves: Normal Cerebellar coordination: Normal Motor strength normal: LUE, RUE, LLE, RLE Additional motor exam normals: Equal 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 X-ray is reassuring with no evidence for rib fracture, pneumothorax. Patient has stable vital signs. Will send home with NSAIDs and muscle relaxants. We will also send home with incentive spirometer for exercise purpose of her lungs. I have encouraged her to return if any worsening symptoms. Encouraged her to place heat on the chest 3 times a day for 20 minutes at a time. Patient agrees with the plan. Primary care follow-up. - Vital Signs Vital signs: Temp Pulse Resp BP Pulse Ox 98.6 F 88 16 128/82 H 100 10/08/20 02:03 10/08/20 05:02 10/08/20 02:03 10/08/20 05:02 10/08/20 05:02 - Diagnostic Test Radiology reviewed: Image reviewed, Reports reviewed Discharge - Discharge Clinical Impression: Chest wall muscle strain Qualifiers: Encounter type: initial encounter Qualified Code(s): S29.011A - Strain of muscle and tendon of front wall of thorax, initial encounter Chest wall contusion Qualifiers: Encounter type: initial encounter Laterality: unspecified laterality Qualified Code(s): S20.219A - Contusion of unspecified front wall of thorax, initial encounter Condition: Stable Disposition: HOME, SELF-CARE Instructions: Chest Wall Pain ([facility]) Additional Instructions: Take medicines as prescribed. Return if worsening symptoms. Rest at home. Apply warm compresses 3 times a day for 3 minutes at a time. No lifting greater than 10 pounds for the next 3 days. Follow-up with your primary care. Return if worsening symptoms. Use incentive spirometer 10 times an hour. Prescriptions: Naproxen [Naprosyn] 500 mg PO BID #20 tablet Methocarbamol [Robaxin 500 mg Tablet] 500 mg PO QID #16 tablet Forms: Return to Work Referrals: [facility] [Provider Group] - Follow up in 1 week (for primary care follow up)
[2020-10-08] MEDS ORDERED: METHOCARBAMOL 500 MG TABLET PO ONE (06:26)
[2020-10-08] MEDS ORDERED: NAPROXEN 250 MG TABLET PO ONE (06:26)
== END 2020-10-08 06:38 | disposition home or self-care (01) ==
LOC: ER 01:30
DX: S29.011A Strain of muscle and tendon of front wall of thorax, initial encounter (principal); S20.219A Contusion of unspecified front wall of thorax, initial encounter; W23.0XXA Caught, crushed, jammed, or pinched between moving objects, initial encounter; Y99.0 Civilian activity done for income or pay; F17.200 Nicotine dependence, unspecified, uncomplicated; I10 Essential (primary) hypertension
CPT/HCPCS: 71046; 99283